=== PATIENT | female | born 1955 | race Caucasian/White ===

== ENCOUNTER → 2019-07-03 13:12 | Outpatient (CLI) | payer BC, SELFPAY ==
--- NOTE | ~2019-07-03 | MM_ITS ---
EXAMINATION: MM scrn syed implant BI w zaid HISTORY: Screening mammogram TECHNIQUE: Craniocaudal and mediolateral oblique 3-D tomosynthesis images with implant displacement a nd synthetic 2-D images were generated. Craniocaudal and mediolateral oblique views of the breasts wi thout implant displacement were obtained using full field digital mammography. CAD analysis was submi tted and interpreted. COMPARISON: Comparison to multiple prior studies sequentially, with oldest reviewed study dated 11/01. BREAST PARENCHYMAL COMPOSITION: There are scattered areas of fibroglandular density. FINDINGS: There is no evidence of suspicious mass, calcification, or architectural distortion to sugg est malignancy in either breast. There has been no suspicious interval change. IMPRESSION: 1. No mammographic evidence of malignancy. 2. Recommend routine screening mammography in one year. BI-RADS Category 1: Negative Reviewed, dictated and finalized at location A.
== END ==
PROVIDERS: PCP Internal Medicine; Visit Provider Internal Medicine
DX: Z12.31 Encounter for screening mammogram for malignant neoplasm of breast (principal)
CPT/HCPCS: 77063; 77067

== ENCOUNTER → 2020-07-05 12:13 | Outpatient (CLI) | payer BC, SELFPAY ==
--- NOTE | ~2020-07-05 | MM_ITS ---
EXAMINATION: MM scrn syed implant BI w zaid HISTORY: Screening mammogram TECHNIQUE: Craniocaudal and mediolateral oblique 3-D tomosynthesis images with implant displacement a nd synthetic 2-D images were generated. Craniocaudal and mediolateral oblique views of the breasts wi thout implant displacement were obtained using full field digital mammography. CAD analysis was submi tted and interpreted. COMPARISON: 07/03/2019, 01/10/2017, 11/01/2009 BREAST PARENCHYMAL COMPOSITION: The breasts are almost entirely fatty. FINDINGS: There is no evidence of suspicious mass, calcification, or architectural distortion to sugg est malignancy in either breast. There has been no suspicious interval change. IMPRESSION: 1. No mammographic evidence of malignancy. 2. Recommend routine screening mammography in one year. BI-RADS Category 1: Negative Reviewed, dictated and finalized at location A.
== END ==
PROVIDERS: PCP Internal Medicine; Visit Provider Internal Medicine
DX: Z12.31 Encounter for screening mammogram for malignant neoplasm of breast (principal)
CPT/HCPCS: 77063; 77067

== ENCOUNTER → 2022-05-18 11:24 | Outpatient (CLI) | payer OTHER, SELFPAY ==
--- NOTE | ~2022-05-18 | MM_ITS ---
EXAMINATION: MM scrn syed implant BI w zaid HISTORY: Screening mammogram TECHNIQUE: Craniocaudal and mediolateral oblique 3-D tomosynthesis images with implant displacement a nd synthetic 2-D images were generated. Craniocaudal and mediolateral oblique views of the breasts wi thout implant displacement were obtained using full field digital mammography. CAD analysis was submi tted and interpreted. COMPARISON: Comparison to multiple prior studies sequentially, with oldest reviewed study dated 01/10. BREAST PARENCHYMAL COMPOSITION: There are scattered areas of fibroglandular density. FINDINGS: There are bilateral subpectoral saline implants. There is no evidence of suspicious mass, c alcification, or architectural distortion to suggest malignancy in either breast. There has been no s uspicious interval change. IMPRESSION: 1. No mammographic evidence of malignancy. 2. Recommend routine screening mammography in one year. BI-RADS Category 1: Negative Reviewed, dictated and finalized at location A. [employer] AUD[employer]OR
== END ==
PROVIDERS: PCP Internal Medicine; Visit Provider Internal Medicine
DX: Z12.31 Encounter for screening mammogram for malignant neoplasm of breast (principal)
CPT/HCPCS: 77063; 77067

== ENCOUNTER → 2022-11-09 11:45 | Outpatient (CLI) | payer OTHER, SELFPAY ==
--- NOTE | ~2022-11-09 | US_ITS ---
EXAMINATION: US breast BI complete HISTORY: Patient with history of suspected capsular contraction of the breast implants. TECHNIQUE: Complete bilateral breast ultrasound is performed including all four quadrants and the sub areolar aspects of both breasts. COMPARISON: Comparison is made to prior mammograms dated 05/18/2022, 07/05/2020, 07/03/2019, and 7. FINDINGS: No sonographic correlate is identified for the patient's reported capsular contraction. The re is a hypoechoic area at the 9:00 location 6 cm from the nipple on the right breast with dense post erior acoustic shadowing, likely reflecting extravasated silicone (patient reports first set of breas t implants were silicone). IMPRESSION: No specific sonographic correlate is identified for the patient's reported capsular retraction. [facility] be based on clinical assessment. Continued follow-up physical exami nation is recommended. BI-RADS Category 2: Benign finding(s). Reviewed, dictated and finalized at location A. IMPRESSION: No specific sonographic correlate is identified for the patient's reported caps ular retraction. Further evaluation at this time should be based on clinical as sessment. Continued follow-up physical examination is recommended. BI-RADS Category 2: Benign finding(s).
== END ==
PROVIDERS: PCP Internal Medicine
DX: Z90.13 Acquired absence of bilateral breasts and nipples (principal); Z98.82 Breast implant status
CPT/HCPCS: 76641

== ENCOUNTER 2023-07-22 17:01 | Emergency (ER) | payer OTHER, SELFPAY ==
[2023-07-22 17:16] VITALS: BP 152/65; PULSE 93; RESP 18; TEMP 36.9; O2SAT 98
--- NOTE | 2023-07-22 17:42 | ED.URI ---
HPI - URI/Sore Throat General Chief Complaint: Upper Respiratory Infection Stated Complaint: cough,sore throat,fever,bodyaches Time Seen by Provider: 07/22/23 17:30 Source: patient and RN notes reviewed Mode of arrival: ambulatory Limitations: no limitations History of Present Illness HPI Narrative: Patient presents today with a 3 day history of cough, nasal congestion, body aches, sore throat, fatigue, and occasional shortness of breath. Denies fever. She has been taking some cold and flu medicine as well as NyQuil with some mild relief. Denies history of COPD and asthma, but does report history of chronic bronchitis for which she is not on any medications for. She is a former smoker. currently has similar symptoms. Related Data Home Medications Medication Instructions Recorded Confirmed citalopram 20 mg tablet 20 mg PO DAILY 02/25/20 07/22/23 clonazepam 0.5 mg tablet 0.5 mg PO DAILY 02/25/20 07/22/23 clozapine 100 mg tablet 100 mg PO TID 02/25/20 07/22/23 pantoprazole 40 mg tablet,delayed 40 mg PO QAM 02/25/20 07/22/23 release simvastatin 40 mg tablet 40 mg PO DAILY 02/25/20 07/22/23 meclizine 25 mg tablet 25 mg DIRECTED 07/22/23 07/22/23 ondansetron 4 mg disintegrating 4 mg DIRECTED 07/22/23 07/22/23 tablet Allergies Allergy/AdvReac Type Severity Reaction Status Date / Time Penicillins Allergy Mild DIFF. Verified 02/25/20 09:30 BREATHING IVP DYE Allergy Mild DIFF. Uncoded 02/25/20 09:30 BREATHING TERAMYCIN Allergy Mild DIFFICULTY Uncoded 02/25/20 09:30 BREATHING Review of Systems Review of Systems: CONSTITUTIONAL: Denies fever, chills, or sweats.+ body aches, fatigue EYES: Denies visual changes, redness, or discharge. ENT: Denies rhinorrhea, or otalgia.+ sore throat, congestion CARDIOVASCULAR: Denies chest pain, palpitations, or edema. RESPIRATORY: + cough, shortness of breath GASTROINTESTINAL: Denies abdominal pain, nausea, vomiting, or diarrhea. GENITOURINARY: Denies dysuria or hematuria. SKIN: Denies rash, itching, or wounds. MUSCULOSKELETAL: Denies back pain, joint pain, or myalgia. NEUROLOGIC: Denies headache, numbness, tingling, or weakness. PSYCH: Denies depression or anxiety. [facility] Past Medical History Medical History (Updated 07/22/23 @ 17:46 by Alem Mas, SUNNY, ) Chronic bronchitis Social History Social History Smoking status: Former smoker Tobacco type: cigarettes Second hand tobacco smoke exposure: No Alcohol intake: current Substance use: never Substance use type: does not use Comments At time of signature, I have reviewed and agree with nursing past medical, surgical, social and family history unless otherwise noted. Please see nursing chart for further information. There is no relevant family history pertinent to the presenting complaint Exam Narrative: GENERAL: Mild appearing, well-nourished, and in no acute distress. HEAD: Normocephalic, atraumatic. EYES: EOMI. No redness or drainage. Conjunctivae normal. ENT: Mucous membranes pink and moist. Nares congested with rhinorrhea. TMs normal bilaterally. Throat normal. Uvula midline. NECK: Normal AROM. Supple. No lymphadenopathy. CHEST: No respiratory distress. Slight expiratory wheeze in the left upper and bilateral lower lobes HEART: Regular rate and rhythm. No murmur appreciated. EXTREMITIES: Normal range of motion. No edema. SKIN: Warm, dry, no rash. Capillary refill normal. Normal skin turgor. NEURO: No focal deficits. Alert and oriented x3. Gait steady. PSYCH: Normal affect. No signs of depression or anxiety. Course Course Level of Care: Express Care Visit Vital Signs Vital signs: Vital Signs Temperature 98.5 F 07/22/23 17:16 Pulse Rate 93 07/22/23 17:16 Respiratory Rate 18 07/22/23 17:16 Blood Pressure 152/65 H 07/22/23 17:16 Pulse Oximetry 98 07/22/23 17:16 Oxygen
== END 2023-07-22 17:56 | disposition home or self-care (01) ==
PROVIDERS: Emergency Provider Nurse Practitioner; PCP Internal Medicine
DX: J40 Bronchitis, not specified as acute or chronic (principal); J06.9 Acute upper respiratory infection, unspecified; Z20.822 Contact with and (suspected) exposure to COVID-19; Z87.891 Personal history of nicotine dependence
CPT/HCPCS: 87426; 87804; 99213; G0463

== ENCOUNTER 2023-07-29 11:11 | Emergency (ER) | payer OTHER, SELFPAY ==
--- NOTE | ~2023-07-29 | XR_ITS ---
Clinical Indication: Rhonchi PA and lateral views of the chest: Comparison: None Findings: The lungs are clear, without evidence of focal consolidation or pleural effusion. Cardiome diastinal silhouette is within normal limits. Bones and soft tissues are unremarkable. Impression: Normal chest. Reviewed, dictated and finalized at location . Impression: Normal chest.
[2023-07-29 11:17] VITALS: BP 137/70; PULSE 100; RESP 20; TEMP 36.4; O2SAT 94
[2023-07-29 11:28] VITALS: BP 137/70; PULSE 100; RESP 20; TEMP 36.4; O2SAT 94
--- NOTE | 2023-07-29 11:30 | ED.SOB ---
HPI - SOB/Dyspnea General Chief Complaint: Shortness of Breath/Dyspnea Stated Complaint: hard time breathing,cough, not feeling good Time Seen by Provider: 07/29/23 11:30 Source: patient Mode of arrival: ambulatory Limitations: no limitations History of Present Illness HPI Narrative: Leticia is a 67-year-old female patient presenting to the clinic today with complaints of cough, difficulty breathing, and overall not feeling well. She reports she is coughing up some green phlegm. Symptoms have been going on for about 10 days. Was seen in the clinic 1 week ago and given prescriptions for albuterol inhaler and prednisone. Patient has finished the prednisone. Is not feeling as though she has gotten any improvement. History of COPD/chronic bronchitis and is a former smoker. Reporting some chest tightness. Related Data Home Medications Medication Instructions Recorded Confirmed citalopram 20 mg tablet 20 mg PO DAILY 02/25/20 07/29/23 clonazepam 0.5 mg tablet 0.5 mg PO DAILY 02/25/20 07/29/23 clozapine 100 mg tablet 100 mg PO TID 02/25/20 07/29/23 pantoprazole 40 mg tablet,delayed 40 mg PO QAM 02/25/20 07/29/23 release simvastatin 40 mg tablet 40 mg PO DAILY 02/25/20 07/29/23 meclizine 25 mg tablet 25 mg DIRECTED 07/22/23 07/29/23 ondansetron 4 mg disintegrating 4 mg DIRECTED 07/22/23 07/29/23 tablet Allergies Allergy/AdvReac Type Severity Reaction Status Date / Time Penicillins Allergy Mild DIFF. Verified 07/29/23 11:27 BREATHING IVP DYE Allergy Mild DIFF. Uncoded 07/29/23 11:27 BREATHING TERAMYCIN Allergy Mild DIFFICULTY Uncoded 07/29/23 11:27 BREATHING Review of Systems Review of Systems: Pertinent positives per HPI. Patient denies any fever, chills, rash, headache, visual changes, dizziness, cough, shortness of breath, chest pain, palpitations, nausea, vomiting, diarrhea, constipation, abdominal pain, or any urinary issues. [facility] [place] Past Medical History Medical History (Updated 07/29/23 @ 12:13 by Roosevelt Rider, FADI) Chronic bronchitis Social History Social History Smoking status: Former smoker Tobacco type: cigarettes Second hand tobacco smoke exposure: No Alcohol intake: current Substance use: never Substance use type: does not use Comments At the time of my signature, I reviewed and agree with the nursing past medical, surgical, social, and family history. There is no relevant family history pertinent to the patient complaint. Exam Narrative: General: Well-developed, well nourished, in no apparent distress Head: Normocephalic, atraumatic Eyes: Pupils equally round and reactive to light bilaterally, EOM intact, sclera and conjunctive clear, no discharge, lids normal Ears: TMs intact and clear, ear canals clear, no drainage, grossly hearing normal. Nose: Nares patent, no discharge, no inflammation, no sinus tenderness. Mouth: Oral pharynx without lesions or masses, good dentition, MMM. Neck: Supple, trachea midline, no enlargement of anterior or posterior cervical nodes, no thyroid masses or goiter palpable. Cardio: Regular rate and rhythm, s1 and s2 normal, no murmur appreciated. Resp: Inspiratory and expiratory rhonchi/crackles throughout lung marcial, no rales or rubs Course Course Emergency Course: Portions of this record may have been created with voice recognition software. Level of Care: Express Care Visit Vital Signs Vital signs: Vital Signs Temperature 36.4 C 07/29/23 11:17 Pulse Rate 100 07/29/23 11:17 Respiratory Rate 07/29/23 11:17 Blood Pressure 137/70 07/29/23 11:17 Pulse Oximetry 94 07/29/23 11:17 Oxygen Delivery Room Air 07/29/23 11:17 Temperature 36.4 C 07/29/23 11:28 Pulse Rate 100 07/29/23 11:28 Respiratory Rate 20 07/29/23 11:28 Blood Pressure 137/70 07/29/23 11:28 Pulse Oximetry 94 07/29/23 11:28 Oxygen Delive
[2023-07-29] MEDS: IPRATROPIUM BR 0.02% INH SOLN 0.5 MG/2.5 ML VIAL INHALATION (11:44)
[2023-07-29] MEDS: ALBUTEROL SULFATE NEB 2.5 MG/3 ML INH INHALATION (11:44)
== END 2023-07-29 12:20 | disposition home or self-care (01) ==
PROVIDERS: Emergency Provider Nurse Practitioner Family; PCP Internal Medicine
DX: J44.1 Chronic obstructive pulmonary disease with (acute) exacerbation (principal); Z87.891 Personal history of nicotine dependence
CPT/HCPCS: 71046; 94640; 99213; G0463